=== PATIENT | male | born 1960 | race African-American/Black ===

== ENCOUNTER 2016-08-06 18:31 | Emergency (ER) | payer OTHER | END 2016-08-06 22:32 | disposition home or self-care (01) | LOC: ER 18:31 | DX: S39.012A Strain of muscle, fascia and tendon of lower back, initial encounter (principal); I10 Essential (primary) hypertension; V29.00XA Motorcycle driver injured in collision with unspecified motor vehicles in nontraffic accident, initial encounter | CPT/HCPCS: 72100; 99284 ==